=== PATIENT | male | born 1950 | race Asian ===

== ENCOUNTER 2021-07-25 12:00 | Emergency (ER) | payer OTHER ==
[~2021-07-25] VITALS: Ht 172.7 cm; Wt 77.1 kg
[~2021-07-25 12:00] MED LIST: AMLO10TA PO; ASA LO-DOSE81 MG PO; BACL10TA4 PO; EDARBI40 MG OR; EDARBYCLOR1 TA1 OR; INSU100P SC; INSUINJP SC; LEVITRA20 MG OR; LIPITOR80 MG PO; NEURONTIN600 MG PO; PRILOSEC20 MG OR; VENLAFAXINE100 MG OR
[2021-07-25 12:44] LABS: PLATELET COUNT 282 K/uL (142-355)
[2021-07-25 12:50] LABS: POTASSIUM 3.7 mmol/L (3.6-5.2)
[2021-07-25 15:45] VITALS: BP 166/72; TEMP 98.4
== END 2021-07-25 16:10 | disposition home or self-care (01) ==
LOC: ED 12:00
PROVIDERS: Emergency Medicine
DX: R55 Syncope and collapse (principal); I95.1 Orthostatic hypotension
CPT/HCPCS: 80053; 81000; 84484; 85027; 85610; 93005; 96360; 99284